=== PATIENT | female | born 1985 | race African-American/Black ===

== ENCOUNTER 2017-12-31 10:23 | Inpatient (IN) | payer OTHER ==
[~2017-12-31] VITALS: Ht 170.2 cm; Wt 113.4 kg
[2017-12-31] VITALS (10 sets, daily range): BP systolic 116–139; BP diastolic 68–88
[~2017-12-31 10:23] MED LIST: ceFAZolin sod 2 GM in NS 110 ML IVPB ONE
[2017-12-31] MEDS ORDERED: NORCO 10-325 T1 EACH ORAL (11:26)
[2017-12-31] MEDS ORDERED: IBUPROFEN600 MG ORAL (11:27)
[2017-12-31] MEDS ORDERED: Ketorolac 30mg Inj ONE (11:30)
[2017-12-31] MEDS ORDERED: LR 1000ml ONE (11:30)
[2017-12-31] MEDS ORDERED: Sterile Water Irrig 1000ml IRRIG ONE (11:30)
[2017-12-31] MEDS ORDERED: Propofol 1,000mg/ 100ml btl IV ONE (11:30)
[2017-12-31] MEDS ORDERED: fentaNYL 100 mcg/2 mL IV ONE (11:30)
[2017-12-31] MEDS ORDERED: Glycopyrrolate 0.2mg/ml 1ml Vial ONE (11:30)
[2017-12-31] MEDS ORDERED: Metoclopramide 10mg/2ml Inj ONE (11:30)
[2017-12-31] MEDS ORDERED: Midazolam 2mg/2ml Inj ONE (11:30)
[2017-12-31] MEDS ORDERED: Propofol 200mg/20ml IV ONE (11:30)
[2017-12-31] MEDS ORDERED: Morphine Sulfate 10mg/ml Inj ONE (11:30)
[2017-12-31] MEDS ORDERED: Dexamethasone 4mg/ml vial ONE (11:30)
[2017-12-31] MEDS ORDERED: NS Irrig 1000ml ONE (11:30)
[2017-12-31] MEDS ORDERED: CYCLOBENZAPRINE10 MG ORAL (11:40)
[2017-12-31] MEDS ORDERED: Thrombin 5000 units TOPIC ONE (11:48)
[2017-12-31] MEDS ORDERED: Bupivacaine 0.5% Inj 30 ml vial INJ ONE (11:48)
[2017-12-31] MEDS ORDERED: Vancomycin 1gm inj IVPB ONE ×2 (11:49→13:38)
[2017-12-31] MEDS ORDERED: EPINEPHrine 1mg/1ml Amp ONE (11:49)
--- NOTE | 2017-12-31 11:57 | Pre-Procedure Note/Attestation ---
Pre-Procedure Note/Attestation Complete Prior to Procedure Procedure Narrative: l5s1 laminotomies, microdecompression and microdiscectomy Indications for Procedure Pre-Operative Diagnosis: hnp with lumbar radiculopathy Attestation I attest that I discussed the nature of the procedure; its benefits; risks and complications; and alternatives (and the risks and benefits of such alternatives ), prior to the procedure, with the patient (or the patient's legal digital sales representative). I attest that, if there was a reasonable possibility of needing a blood transfusion, the patient (or the patient's legal digital sales representative) was given the [facility] Health Services standardized written summary, pursuant to the Jake Ajay Blood Safety Act ([place] Health and Safety Code # 1645, as amended). I attest that I re-evaluated the patient just prior to the surgery and that there has been no change in the patient's H&P, except as documented below: LAMINE PRATT Dec 31, 2017 11:57
[2017-12-31] MEDS ORDERED: Bacitracin 50000 Units Vial IRRIG ONE (12:46)
--- NOTE | 2017-12-31 12:58 | Anethesia Preoperative Eval ---
Anesthesia Pre-op PMH/ROS General Date of Evaluation: Dec 31, 2017 Time of Evaluation: 11:45 Anesthesiologist: RAN ASA Score: ASA 2 Mallampati Score Class I : Soft palate, uvula, fauces, pillars visible Class II: Soft palate, uvula, fauces visible Class III: Soft palate, base of uvula visible Class IV: Only hard plate visible Mallampati Classification: Class II Surgeon: TERENCE Diagnosis: LUMBAR RADICULOPATHY Surgical Procedure: L5-S1 MICRODISKECTOMY Anesthesia History: none Family History: no anesthesia problems Allergies: Coded Allergies: No Known Allergies (Unverified , 12/31/17) Anesthesia Pre-op Phys. Exam Physician Exam Last Vital Signs Date Time Temp Pulse Resp B/P (MAP) Pulse Ox O2 Delivery O2 Flow Rate FiO2 12/31/17 11:02 98.0 80 18 135/88 100 Room Air 98.0 Constitutional: NAD Neurologic: CN 2-12 intact Cardiovascular: RRR Respiratory: CTA Gastrointestinal: S/NT/ND Airway Exam Mallampati Score: Class II MO: full ROM: full Teeth: intact Anesthesia Pre-op A/P Labs Urine Test Test 12/31/17 10:30 Urine HCG, Qualitative Negative Risk Assessment & Plan Plan: GA Status Change Before Surgery: No Pre-Antibiotics Drug: ANCEF Given Within 1 Hr of Incision: Yes Time Given: 12:00 Erick Aguirre M.D. Dec 31, 2017 12:58
[2017-12-31] MEDS ORDERED: DiphenhydrAMINE 50mg/ml Inj IVP PRN (13:00)
[2017-12-31] MEDS ORDERED: Morphine Sulfate 2mg/ml Inj IVP PRN (13:00)
[2017-12-31] MEDS ORDERED: Hydromorphone 0.5mg/0.5ml inj IVP PRN ×2 (13:00→15:15)
[2017-12-31] MEDS ORDERED: Midazolam 2mg/2ml Inj IVP PRN (13:00)
[2017-12-31] MEDS ORDERED: fentaNYL 100 mcg/2 mL IV PRN (13:00)
--- NOTE | 2017-12-31 13:02 | Immediate Post-Op Evaluation ---
Immediate Post-Op Evalulation Immediate Post-Op Evalulation Procedure: L5-S1 MICRODISKECTOMY Date of Evaluation: Dec 31, 2017 Time of Evaluation: 14:00 IV Fluids: 1000 Blood Products: 0 Estimated Blood Loss: 50 Urinary Output: 400 Blood Pressure Systolic: 145 Blood Pressure Diastolic: 65 Pulse Rate: 85 Respiratory Rate: 18 O2 Sat by Pulse Oximetry: 99 Temperature (Fahrenheit): 98 Pain Score (1-10): 0 Nausea: No Vomiting: No Complications NONE Patient Status: awake, reacts, patent, extubated, none Hydration Status: adequate Drug: ANCEF Given Within 1 Hr of Incision: Yes Time Given: 12:00 Erick Aguirre M.D. Dec 31, 2017 13:02
--- NOTE | 2017-12-31 13:03 | 48 Hour Post Anesthesia Eval ---
Post Anesthesia Evaluation Procedure: L5-S1 MICRODISKECTOMY Date of Evaluation: Jan 02, 2018 Time of Evaluation: 09:00 Blood Pressure Systolic: 143 0: 95 Pulse Rate: 85 Respiratory Rate: 18 Temperature (Fahrenheit): 98 O2 Sat by Pulse Oximetry: 99 Airway: patent Nausea: No Vomiting: No Pain Intensity: 0 Hydration Status: adequate Mental Status/LOC: patient returned to baseline Post-Anesthesia Complications: NONE Follow-up care needed: ready to discharge Erick Aguirre M.D. Dec 31, 2017 13:03
[2017-12-31] MEDS ORDERED: Acetaminophen (Non formulary) 100 ML IV ONE (14:10)
--- NOTE | 2017-12-31 15:13 | Brief Operative Note ---
Immediate Post Operative Note Operative Note Pre-op Diagnosis: hnp with lumbar radiculopathy Procedure: l l5s1 microdiscectomy Post-op Diagnosis: same as pre-op Findings: consistent w/pre-op dx studies Surgeon: yun Associate Art Director: kali Anesthesiologist: piter Anesthesia: general Specimen: yes - l5s1 disc Complications: none Condition: stable Fluids: 1l Estimated Blood Loss: minimal - 25cc Drains: none Implant(s) used?: No LAMINE PRATT Dec 31, 2017 15:13
[2017-12-31] MEDS ORDERED: Norco 5mg/325mg tab ORAL PRN (15:15)
[2017-12-31] MEDS ORDERED: HYDROcodone/Acetamin 7.5/325 tab ORAL PRN (15:15)
[2017-12-31] MEDS ORDERED: Hydromorphone 0.5mg/0.5ml inj SUBQ PRN (15:15)
[2017-12-31] MEDS ORDERED: Naloxone 0.4mg/ml Inj IVP PRN (15:15)
--- NOTE | 2017-12-31 16:31 | Diagnostic Imaging Report ---
Indication: Pain, intraoperative Technique: Intraoperative images Comparison: none Findings: Intraoperative images demonstrate localizer tool projecting posterior to what is presumably S1 Impression: Intraoperative imaging, as described
[2017-12-31] MEDS ORDERED: LR 1000ml 1,000 ML IVLG SCH (17:30)
[2017-12-31] MEDS: Docusate 100mg cap ORAL SCH (17:33)
[2017-12-31] MEDS ORDERED: ceFAZolin 1gm/50ml Premix 50 ML IV SCH (22:00)
[2017-12-31] MEDS: ceFAZolin sod 1 GM in NS 55 ML IVPB SCH (22:15)
[2018-01-01] VITALS: BP 117/69
[2018-01-01] MEDS: HYDROcodone/Acetamin 7.5/325 tab ORAL PRN ×3 (00:23→17:33)
--- NOTE | 2018-01-01 00:30 | Operative Note - Dictated ---
DATE OF OPERATION: 12/31/2017 PREOPERATIVE DIAGNOSIS: L5-S1 disk extrusion with Modic changes and lower extremity radiculopathy. POSTOPERATIVE DIAGNOSIS: L5-S1 disk extrusion with Modic changes and lower extremity radiculopathy. PROCEDURE PERFORMED: 1. Left L5-S1 medial facetectomy, laminotomy, foraminotomy, and microdiskectomy. 2. Intraoperative use of fluoroscopy. 3. Intraoperative use of microscope. SURGEON: Joey Villarreal M.D. METAL POLISHER: Steven Winkler M.D. ANESTHESIA: General endotracheal anesthesia. ANESTHESIOLOGIST: Erick Aguirre M.D. INTRAOPERATIVE FINDINGS: A large disk extrusion at L5-S1 with severe compression of the thecal sac and the left S1 traversing nerve root and exiting L5 nerve root with severe spinal stenosis. ESTIMATED BLOOD LOSS: A 25 mL. FLUIDS: A 1 liter of crystalloid. INDICATIONS: This is a pleasant female who had failed nonoperative treatment with lower extremity radiculopathy and nonoperative treatment, options for above treatment was given. Risks, alternatives, and benefits were discussed with the patient at length. Risks include but are not limited to anesthesia complications including , medical complications including liver, kidney, and cardiopulmonary deficits, , bleeding, infection, dural tear, CSF leak, nerve injury, pars fracture, instability, reherniation, and continued symptoms. The patient understood and wished to proceed. Written and verbal consent was given. DESCRIPTION OF OPERATION: The patient was brought to the operating room supine on a stretcher. Subsequently, appropriate IV lines were placed and 3 g of Ancef was administered. Surgical time-out was called. The consent form, the patient, and staff were identified and confirmed. Anesthesia was induced. The patient was successfully intubated. Sequential compression devices were placed. The patient was turned over on the José Luis frame table. All bony prominences were well padded and the abdomen was assured to lay freely. The L5-S1 interspace was located preoperatively via fluoroscopy and an indelible marker was used to adriana the midline. The patient was prepped and draped in the usual sterile fashion with alcohol, chlorhexidine scrub, ChloraPrep, and Ioban draping. At this point, the intraoperatively sterilely draped microscope was brought into the field and a midline incision was carried out over L5-S1. The patient was severely morbidly obese and there was significant amount of suprafascial fatty tissues which made retraction difficult. Therefore, a left-sided as well as a partial right-sided approach to the lamina at L5-S1 was undertaken for retractor placement. Once the lamina on the left side was subperiosteally dissected, a radiopaque marker was placed at the pedicle level and lateral fluoroscopy revealed the L5-S1 level to be positively identified. At this point, retractors were set into place at L5-S1, and excellent retraction and visualization at left L5-S1 interspace was allowed. At this point, attention was diverted to doing the laminotomy with high-speed drill, straight and curved curettes, #2 through #5 Kerrison punches were used to do an interlumbar laminotomy, medial facetectomy, and foraminotomy. SSEP neurophysiological monitoring was done throughout the case and EMGs remained stable throughout the case. SSEPs remained stable. At this point, the lateral approach to the disk at L5-S1 on the left side was done and a box incision was made in the disk with an #11 scalpel. At this point, with the use of Allison rongeur, straight and forward-angled pituitary, Roldan, Nargis probe, nerve hook, a microdiskectomy was done. Initially, there was not much retraction of the neural elements given the very large size of the disk herniation, but disk was debulked, gentle retraction with a nerve root retractor was done, and all herniated and extruded disk material were removed. Further investigation of the disk revealed no further fragments. Disk space irrigation was done and a complete decompression of the central canal, lateral recess, and foraminal space was undertaken. Valsalva 40 mmHg was done and there was no CSF leak. At this point, attention was diverted to closure. The wound was copiously irrigated with Triple Antibiotic solution. All sponge, needle, and instrument counts were correct. The dorsal lumbar fascia was closed with #1 Vicryl sutures in a watertight interrupted fashion. The subdermal subcuticular layers were closed with 2-0 Vicryl sutures. Before that, 1 g of vancomycin powder was placed suprafascially and subfascially. The skin was now closed with Dermabond. Sterile dressing and tape was placed. All sponge, needle, and instrument counts were correct. There were no complications during the case. EBL was 25 mL. Fluids were 1 L. The patient was turned supine, was extubated in stable condition, was taken to the recovery room in stable condition, and found to be neurovascularly intact. Joey Villarreal M.D. DR: Ramya JOB#: [id number] CC:
[2018-01-01 04:00] VITALS: BP 109/71
[2018-01-01] MEDS: ceFAZolin sod 1 GM in NS 55 ML IVPB SCH ×3 (05:15→21:46)
[2018-01-01 08:40] VITALS: BP 121/65
[2018-01-01] MEDS: Docusate 100mg cap ORAL SCH ×2 (09:35→17:31)
[2018-01-01 12:00] VITALS: BP 119/74
[2018-01-01 16:00] VITALS: BP 119/79
--- NOTE | 2018-01-01 17:29 | General Progress Note ---
Progress Note Progress Note doing well post op no leg pain low back pain avss a and o times 3 dressing cdi 5/5 in the le calves soft and nt doing well oob pt pain management dc tomorrow follow up in 7 days. LAMINE PRATT Jan 01, 2018 17:28
[2018-01-01 20:00] VITALS: BP 128/80
[2018-01-02] VITALS: BP 116/71
[2018-01-02] MEDS: HYDROcodone/Acetamin 7.5/325 tab ORAL PRN ×3 (01:41→11:47)
[2018-01-02 04:00] VITALS: BP 122/80
[2018-01-02] MEDS: ceFAZolin sod 1 GM in NS 55 ML IVPB SCH (06:22)
[2018-01-02] MEDS ORDERED: NORCO 5-325 TA1 EAC1 ORAL (07:30)
[2018-01-02] MEDS ORDERED: NAPROSYN500 M1 ORAL (07:31)
[2018-01-02 08:00] VITALS: BP 107/68
[2018-01-02] MEDS: Docusate 100mg cap ORAL SCH (08:39)
[2018-01-02 12:00] VITALS: BP 118/66
--- NOTE | 2018-01-06 10:04 | Discharge Summary ---
Discharge Summary Hospital Course Date of Admission Dec 31, 2017 at 10:23 Date of Discharge Jan 02, 2018 at 12:50 Admitting Diagnosis back pain and lower extremity radiculopathy Reason for Hospitalization: elective surgery HPI Christiane Yin is a 32 year old female who was admitted on Dec 31, 2017 at 10: 23 for back pain and lower extremities radiculopathy patient was admitted fr elective surgery Procedures PROCEDURE PERFORMED: 12/31/[address]arreal 1. Left L5-S1 medial facetectomy, laminotomy, foraminotomy, and microdiskectomy. 2. Intraoperative use of fluoroscopy. 3. Intraoperative use of microscope. Hospital Course s/p surgery course of recovery uneventful LE pain resoled neurovascular intact pain management, controlled ambulated with PT initially ;n able to ambulate independently, stable dressing C/D/I voided freely tolerated diet stable for dc fup with surgeon as outpt in 7 days FINAL DIAGNOSIS Herniated nucleus pulposa with lumbar radiculopathy s/p L5S1 microdiscectomy Discharge Medications Continued Medications: Hydrocodone Bit/Acetaminophen 5-325* (Magnolia 5-325 Tablet*) 1 Each Tablet 1 TAB ORAL Q6HR PRN for For Pain, #40 TAB Naproxen* (Naprosyn*) 500 Mg Tablet 500 MG ORAL TWICE A DAY for For Pain, #40 TAB Discharge Condition Upon Discharge: stable Discharge Disposition Patient was discharged to Home (01) Discharge Diagnoses: Discharge Instructions Discharge Instructions Special Instructions I have been assigned to complete a D/C Summary on this account. I was not involved in the patient management Airam Fallon NP (Vanchtein) Jan 06, 2018 10:04
== END 2018-01-02 12:50 | disposition home or self-care (01) | DRG 520 ==
LOC: SDSOVERFLO 10:23 → 3E 17:15
PROC: 0ST40ZZ Resection of Lumbosacral Disc, Open Approach (ICD-10-PCS; principal; 2017-12-31 12:00)
DX: M51.17 Intervertebral disc disorders with radiculopathy, lumbosacral region (principal); E66.9 Obesity, unspecified; Z68.35 Body mass index [BMI] 35.0-35.9, adult; M48.07 Spinal stenosis, lumbosacral region
CPT/HCPCS: 36415; 72020; 76000; 81025; 86850; 86900; 86901; 87081; 94003; 94150; J2250; J2405; J2765

== ENCOUNTER 2018-06-14 09:26 | Inpatient (IN) | payer OTHER ==
[2018-06-14] VITALS (12 sets, daily range): BP systolic 122–181; BP diastolic 73–116
[~2018-06-14] VITALS: Ht 170.2 cm; Wt 118.8 kg
[~2018-06-14 09:26] MED LIST changes: +CYCLOBENZAPRINE10 MG ORAL; +IBUPROFEN600 MG ORAL; +NAPROSYN500 M1 ORAL; +NORCO 10-325 T1 EACH ORAL; +NORCO 5-325 TA1 EAC1 ORAL; +ceFAZolin sod 2 GM in D5W 110 ML IVPB ONE; -ceFAZolin sod 2 GM in NS 110 ML IVPB ONE
[2018-06-14] MEDS ORDERED: Zemuron 50mg/5ml Inj IV ONE (10:54)
[2018-06-14] MEDS ORDERED: Vancomycin 1gm inj IVPB ONE (10:57)
[2018-06-14] MEDS ORDERED: EPINEPHrine 1mg/1ml Amp ONE (10:57)
[2018-06-14] MEDS ORDERED: Thrombin 5000 units TOPIC ONE (10:57)
[2018-06-14] MEDS ORDERED: Lacri-Lube Opth Oint 3.5gm ONE (10:57)
[2018-06-14] MEDS ORDERED: Gelfoam Size TOPIC ONE (10:58)
[2018-06-14] MEDS ORDERED: Heparin 1000 units/ml 1ml Vial ONE (10:58)
[2018-06-14] MEDS: D5 1/2NS 1,000 ML IV SCH ×3 (10:58→19:50)
[2018-06-14] MEDS ORDERED: Bacitracin 50000 Units Vial ONE (10:58)
[2018-06-14] MEDS ORDERED: Bupivacaine 0.5% Inj 30 ml vial INJ ONE (10:58)
--- NOTE | 2018-06-14 10:58 | Pre-Procedure Note/Attestation ---
Pre-Procedure Note/Attestation Complete Prior to Procedure Procedure Narrative: ACDF C56 WITH BONE MARROW ASPIRATION Indications for Procedure Pre-Operative Diagnosis: cervical radiculopathy Attestation I attest that I discussed the nature of the procedure; its benefits; risks and complications; and alternatives (and the risks and benefits of such alternatives ), prior to the procedure, with the patient (or the patient's legal appeals representative). I attest that, if there was a reasonable possibility of needing a blood transfusion, the patient (or the patient's legal appeals representative) was given the [facility] Services standardized written summary, pursuant to the Jake Ajay Blood Safety Act ([place] Health and Safety Code # 1645, as amended). I attest that I re-evaluated the patient just prior to the surgery and that there has been no change in the patient's H&P, except as documented below: Joey Villarreal MD Jun 14, 2018 10:58
[2018-06-14] MEDS ORDERED: Sterile Water Irrig 1000ml IRRIG ONE (11:00)
[2018-06-14] MEDS ORDERED: LR 1000ml ONE (11:00)
[2018-06-14] MEDS ORDERED: NS Irrig 1000ml ONE (11:00)
[2018-06-14] MEDS ORDERED: Propofol 1,000mg/ 100ml btl IV ONE (11:00)
[2018-06-14] MEDS ORDERED: Propofol 200mg/20ml IV ONE (11:06)
[2018-06-14] MEDS ORDERED: Lidocaine 1% MPF 10mg/ml 5ml ONE (11:06)
[2018-06-14] MEDS ORDERED: Dexamethasone 4mg/ml vial ONE (11:06)
[2018-06-14] MEDS ORDERED: fentaNYL 100 mcg/2 mL IV ONE ×2 (11:06→12:24)
[2018-06-14] MEDS ORDERED: Ketamine 500mg Inj ONE (11:09)
[2018-06-14] MEDS ORDERED: Sugammadex Sodium 200mg/2ml vial IV ONE (11:24)
[2018-06-14] MEDS ORDERED: Labetalol 5mg/ml 20ml vial IV ONE (12:41)
[2018-06-14] MEDS ORDERED: LR 1000ml 1,000 ML IVLG SCH (13:00)
[2018-06-14] MEDS ORDERED: Hydromorphone 0.5mg/0.5ml inj IVP PRN (13:00)
[2018-06-14] MEDS ORDERED: Labetalol 5mg/ml 20ml vial IV PRN (13:00)
[2018-06-14] MEDS ORDERED: fentaNYL 100 mcg/2 mL IV PRN (13:00)
[2018-06-14] MEDS ORDERED: Midazolam 2mg/2ml Inj IVP PRN (13:00)
[2018-06-14] MEDS ORDERED: DiphenhydrAMINE 50mg/ml Inj IVP PRN (13:00)
--- NOTE | 2018-06-14 13:00 | Anethesia Preoperative Eval ---
Anesthesia Pre-op PMH/ROS General Date of Evaluation: Jun 14, 2018 Time of Evaluation: 11:10 Anesthesiologist: ASA Score: ASA 3 Mallampati Score Class I : Soft palate, uvula, fauces, pillars visible Class II: Soft palate, uvula, fauces visible Class III: Soft palate, base of uvula visible Class IV: Only hard plate visible Mallampati Classification: Class II Surgeon: yun Diagnosis: cervicle radiculopathy Anesthesia History: none Family History: no anesthesia problems Allergies: Coded Allergies: No Known Allergies (Unverified , 12/31/17) Past Medical History Cardiovascular: Reports: other - probable undiagnosed HTN; Denies: HTN, CAD, AR, valve dz, arrhythmia Pulmonary: Denies: asthma, COPD, JAMES, other Gastrointestinal/Genitourinary: Denies: GERD, CRI, ESRD, other Neurologic/Psychiatric: Denies: dementia, CVA, depression/anxiety, TIA, other Endocrine: Denies: DM, hypothyroidism, steroids, other HEENT: Denies: cataract (L), cataract (R), glaucoma, [place] other Hematology/Immune: Denies: anemia, DVT, bleeding disorder, other Musculoskeletal/Integumentary: Reports: other - cervical radiculopathy; Denies: OA, RA, DJD, DDD, edema Other: obesity PSxH Narrative: back surgery, cholecystectomy Anesthesia Pre-op Phys. Exam Physician Exam Last Vital Signs Date Time Temp Pulse Resp B/P (MAP) Pulse Ox O2 Delivery O2 Flow Rate FiO2 06/14/18 10:36 97.1 59 20 134/92 (106) 100 97.1 06/14/18 10:17 Room Air Constitutional: NAD Cardiovascular: RRR Respiratory: CTA Gastrointestinal: S/NT/ND Airway Exam Mallampati Score: Class II MO: full ROM: full Teeth: intact Dentures: no upper, no lower Anesthesia Pre-op A/P Labs Urine Test Test 06/14/18 09:31 Urine HCG, Qualitative Negative (NEGATIVE) Risk Assessment & Plan Assessment: asa 3 Plan: ETGA Status Change Before Surgery: No Pre-Antibiotics Drug: ancef 3 grams Given Within 1 Hr of Incision: Yes Time Given: 11:40 Precious Roth M.D. Jun 14, 2018 13:00
--- NOTE | 2018-06-14 13:12 | Immediate Post-Op Evaluation ---
Immediate Post-Op Evalulation Immediate Post-Op Evalulation Procedure: ACDF C5-6 w/bone marrow asp. iliac crest and possible allograft Date of Evaluation: Jun 14, 2018 Time of Evaluation: 14:35 IV Fluids: lr 600ml Blood Products: 0 Estimated Blood Loss: 20ml Urinary Output: 600ml Blood Pressure Systolic: 173 Blood Pressure Diastolic: 98 Pulse Rate: 61 Respiratory Rate: 12 O2 Sat by Pulse Oximetry: 100 Temperature (Fahrenheit): 97 Pain Score (1-10): 0 Nausea: No Vomiting: No Complications none Patient Status: reacts, patent, none Hydration Status: adequate Drug: ancef 3 grams Given Within 1 Hr of Incision: Yes Time Given: 11:40 Precious Roth M.D. Jun 14, 2018 13:12
--- NOTE | 2018-06-14 14:13 | Brief Operative Note ---
Immediate Post Operative Note Operative Note Pre-op Diagnosis: cervical radiculopathy Procedure: acdf c56 with BMAC from right iliac crest Post-op Diagnosis: same as pre-op Findings: consistent w/pre-op dx studies Surgeon: TERENCE Sales Systems Engineer: MARCO A Anesthesiologist: Anesthesia: general Specimen: yes Complications: none Condition: stable Fluids: 600CC Estimated Blood Loss: minimal - 200CC Implant(s) used?: Yes Joey Villarreal MD Jun 14, 2018 14:13
--- NOTE | 2018-06-14 15:23 | Diagnostic Imaging Report ---
Indication: Neck pain Technique: Intraoperative images Comparison: none Findings: Intraoperative images demonstrate localizer tool projecting anterior to what appears to be the C5-6 disc. Subsequent images demonstrate anterior fusion at C5-6 Impression: Intraoperative imaging, as described
[2018-06-14] MEDS ORDERED: HYDROcodone/Acetamin 7.5/325 tab ORAL PRN (16:06)
[2018-06-14] MEDS ORDERED: Norco 5mg/325mg tab ORAL PRN (16:06)
[2018-06-14] MEDS ORDERED: Morphine Sulfate 4mg/ml Inj (IV USE ONLY) IV PRN (16:07)
[2018-06-14] MEDS ORDERED: Naloxone 0.4mg/ml Inj IVP PRN (16:07)
[2018-06-14] MEDS ORDERED: Morphine Sulfate 2mg/ml Inj(IV/IM USE ONLY) IV PRN (16:07)
[2018-06-14] MEDS: Docusate 100mg cap ORAL SCH (17:48)
[2018-06-14] MEDS: Morphine Sulfate 4mg/ml Inj (IV USE ONLY) IV PRN (19:49)
[2018-06-14] MEDS: ceFAZolin 1gm/50ml Premix 50 ML IV SCH (19:50)
[2018-06-14] MEDS: HYDROcodone/Acetamin 7.5/325 tab ORAL PRN (23:08)
[2018-06-15 00:42] VITALS: BP 147/98
[2018-06-15] MEDS: Morphine Sulfate 4mg/ml Inj (IV USE ONLY) IV PRN ×4 (01:16→23:51)
[2018-06-15] MEDS: HYDROcodone/Acetamin 7.5/325 tab ORAL PRN ×4 (03:10→16:17)
[2018-06-15] MEDS: D5 1/2NS 1,000 ML IV SCH (03:35)
[2018-06-15] MEDS: ceFAZolin 1gm/50ml Premix 50 ML IV SCH ×2 (03:36→11:19)
[2018-06-15 04:00] VITALS: BP 109/69
[2018-06-15 08:00] VITALS: BP 131/84
[2018-06-15] MEDS: Docusate 100mg cap ORAL SCH ×2 (08:21→17:54)
--- NOTE | 2018-06-15 08:42 | 48 Hour Post Anesthesia Eval ---
Post Anesthesia Evaluation Procedure: ACDF C5-6 w/bone marrow asp. iliac crest and possible allograft Date of Evaluation: Jun 15, 2018 Time of Evaluation: 08:00 Blood Pressure Systolic: 131 0: 84 Pulse Rate: 60 Respiratory Rate: 19 Temperature (Fahrenheit): 98.4 O2 Sat by Pulse Oximetry: 100 Airway: patent Nausea: No Vomiting: No Pain Intensity: 5 Hydration Status: adequate Mental Status/LOC: patient returned to baseline Post-Anesthesia Complications: none Follow-up care needed: N/A Precious Roth M.D. Jun 15, 2018 08:42
[2018-06-15] MEDS ORDERED: NORCO 5-325 TA1 EACH ORAL (10:46)
[2018-06-15] MEDS ORDERED: SOMA350 MG PO (10:47)
--- NOTE | 2018-06-15 10:57 | Operative Note - Dictated ---
DATE OF OPERATION: 06/14/2018 PREOPERATIVE DIAGNOSIS: C5-C6 disk bulge with stenosis and verifiable right C6 radiculopathy. POSTOPERATIVE DIAGNOSIS: C5-C6 disk herniation with stenosis and upper extremity radiculopathy. PROCEDURE PERFORMED: 1. Anterior cervical interbody arthrodesis at C5-C6. 2. Anterior cervical instrumentation at C5-C6. 3. Implantation of PEEK device at C5-C6. 4. Implantation of [place] allograft, local autograft and bone marrow aspirate concentrate at C5-C6. 5. Intraoperative use of fluoroscopy. 6. Apposition of bone marrow aspiration from right iliac crest. SURGEON: Joey Villarreal M.D. DIRECTOR TELECOMMUNICATIONS: Gigi Brown. ANESTHESIA: General endotracheal anesthesia. ANESTHESIOLOGIST: Dr. Roth. ESTIMATED BLOOD LOSS: 20 mL. IV ANTIBIOTICS: 2 g of Ancef. COMPLICATIONS: None. BACKGROUND INDICATIONS: The patient is a pleasant female, who failed nonoperative treatment and options for above treatment were given. Risks, alternatives, and benefits were discussed with the patient at length and the patient wished to proceed. Written and verbal consent was given. OPERATIVE FINDINGS: Herniated nucleus pulposus at C5-C6 with central stenosis and right paracentral and intraforaminal extension of disk herniation causing stenosis and impingement at the traversing and exiting right C6 nerve root. DESCRIPTION OF OPERATION: The patient was brought to the operating room supine on the stretcher. Appropriate IV lines were placed by the anesthesiologist. A 2 g of Ancef was administered. The patient was induced and intubated without complication. The patient was gently placed onto the operating room table. The neck was placed in neutral alignment. The arms were tucked by the side. All bony prominences were well padded as well as the four extremities. SSEP neurophysiological leads were placed and baseline recordings were done by the Neurophysiology restorative care technician and all recordings remained stable throughout the case. Preoperative fluoroscopy revealed the planned incision to be over the C5-C6 interspace. Fluoroscopy revealed the neck to be in adequate normal cervical lordotic position. The neck was prepped and draped in the usual sterile fashion with alcohol, chlorhexidine scrub, ChloraPrep, and Ioban draping. At this point, the neck was prepped and draped in the usual sterile fashion as well as the right iliac crest, which was prepped and draped in the usual sterile fashion with Ioban draping and sterile draping. Initially, attention was diverted to the right iliac crest area. Jamshidi needle was taken and with a puncture incision over the right iliac crest approximately 3 fingerbreadths posterior to the anterior superior iliac spine, the Jamshidi needle was introduced into the center of the iliac crest and aspiration of 3 vials of 10 mL of bone marrow aspiration in different locations from the iliac crest was taped in for a total of 30 mL, this was spun down for concentration of stem cells. Once this was done, now attention was diverted to doing the neck incision and an incision was carried out with a scalpel of the anterior right side of the neck in the crease of the neck. Hemostasis was achieved with bipolar cautery. The platysma was incised in line with the skin incision. Blunt dissection was carried out in the interval between the strap muscles and the sternocleidomastoid. Superficial cervical fascia was dissected caudally as well as cephalad. Carotid pulse was palpated and was found to be well lateral to the field of dissection. At this point with Kittners and finger dissection, the prevertebral space was found and the longus colli was found on each side of the spine, which was subperiosteally dissected. A radiopaque marker in the form of a spinal needle was placed at the disk level and the C5-C6 disk level was positively identified. The case was done from beginning to end with an intraoperatively sterilely draped microscope. At this point, attention was diverted to doing the diskectomy at C5-C6. A #15 blade was used to cut into the anterior annulus and with the use of pituitary rongeurs, straight and curved curette, and #2 and #3 Kerrison punches, a radical diskectomy at C5-C6 was done. Endplate cartilage was removed. Endplate bone was preserved and at this point, a high-speed drill was used to drill the posterior aspect of the vertebral bodies. The local autograft was saved for later implantation into the interbody space. The drilling was done to the level of the posterior longitudinal ligament and with #1 and #2 Microsect curette, the PLL was removed and #1 and #2 Kerrison punches was used to do a complete decompression of the spinal canal, the lateral recess, as well as the neural foramina. There was a large disk herniation, right paramedian and intraforaminal causing significant compression of the exiting right C6 nerve root. Once a complete decompression of the neural foramina was done, final check with Microsect curettes was done, there was complete decompression. All disc material was removed. PLL was removed and a foraminotomy on the left side was also accomplished. At this point, from the spinal element system, different trials were used and at this point, a trial measuring 7 mm in height lordotic, 16 x 13 mm was found to fit into the interbody space well. The corresponding PEEK interbody device was chosen, was packed with local autograft Zelalem putty and bone marrow aspirate concentrate and was tamped into place at C5-C6 with excellent recreation of disk height and lordosis. A [place] cervical plate was chosen, was bent into a lordotic fashion and fixed to the anterior surface of the C5 and C6 vertebral bodies with self-drilling 14 mm screws at C5 and self-drilling 12 mm screws at C6, each screw sat below the locking mechanism of the plate well and the plate sat snugly against the anterior surface of the vertebral bodies. The wound was copiously irrigated multiple times throughout the case including the disk space. There was no bleeding. Hemostasis was achieved with Gelfoam thrombin, bipolar cautery, as well as FloSeal. Fluoroscopy was used throughout the case including biplanar fluoroscopy to plan the incision, to plan the implantation, and check the implantation of the instrumentation and final AP and lateral fluoroscopy revealed the instrumentation to be in excellent position. Hemostasis was achieved. Half a gram of vancomycin powder was placed. The platysma was closed with 3-0 Vicryl sutures in a watertight interrupted fashion. The subcuticular layer was closed with 3-0 Monocryl sutures in a watertight interrupted fashion. The skin was closed with Dermabond. Sterile dressing tape and C-collar was placed. All sponge, needle, and instrument counts were correct. There were no complications during the case. Final EBL was 20 mL only and at this point, the patient was extubated, awoken, taken to the recovery room in stable condition, and was found to be neurovascularly intact. She was admitted to the hospital for monitoring. Joey Villarreal M.D. DR: KWAKU JOB#: [id number] CC: EVI
[2018-06-15 12:00] VITALS: BP 134/81
--- NOTE | 2018-06-15 15:47 | History and Physical ---
History of Present Illness General Date patient seen: Jun 15, 2018 Present Illness HPI 33 year old female with hx of cervical radiculopathy admitted for acdf c56 with BMAC from right iliac crest. She is admitted to floor for post op care. Allergies: Coded Allergies: No Known Allergies (Unverified , 12/31/17) Medication History Scheduled Carisoprodol* (Soma*), 350 MG PO TID, (Reported) Scheduled PRN Hydrocodone Bit/Acetaminophen 5-325* ([place] 5-325*), 1 TAB ORAL Q6H PRN for For Pain, (Reported) Discontinued Medications Cyclobenzaprine Hcl* (Flexeril*), 10 MG ORAL THREE TIMES A DAY, (Reported) Discontinued Reason: Pt stopped taking med Hydrocodone Bit/Acetaminophen 10-325* ([place] 10-325*), 1 TAB ORAL Q4H PRN for For Pain, (Reported) Discontinued Reason: Pt stopped taking med Hydrocodone Bit/Acetaminophen 5-325* ([place] 5-325 Tablet*), 1 TAB ORAL Q6HR PRN for For Pain, (Reported) Discontinued Reason: Pt stopped taking med Ibuprofen* (Motrin*), 600 MG ORAL Q6H PRN for For Pain, (Reported) Discontinued Reason: Pt stopped taking med Naproxen* (Naprosyn*), 500 MG ORAL TWICE A DAY, (Reported) Discontinued Reason: Pt stopped taking med Patient History Healthcare decision maker ROGELIO-MOTHER Resuscitation status Full Code Advanced Directive on File Past Medical/Surgical History Past Medical/Surgical History: (1) Cervical radiculopathy (2) acdf c56 Review of Systems All Other Systems: negative except mentioned in HPI Physical Exam General Appearance: WD/WN, no apparent distress Lines, tubes and drains: peripheral HEENT: normocephalic, atraumatic Neck: non-tender, normal alignment Respiratory/Chest: chest wall non-tender, lungs clear Breasts: no masses Cardiovascular/Chest: normal peripheral pulses, normal rate Abdomen: normal bowel sounds, non tender Genitourinary/Rectal: normal genital exam, normal rectal exam Skin Exam: normal pigmentation Last 24 Hour Vital Signs Date Time Temp Pulse Resp B/P (MAP) Pulse Ox O2 Delivery O2 Flow Rate FiO2 06/15/18 14:15 98.4 06/15/18 13:16 98.4 06/15/18 12:00 98.1 59 18 134/81 (98) 100 98.1 06/15/18 10:00 Room Air 06/15/18 08:42 209.1 60 19 100 06/15/18 08:22 98.4 06/15/18 08:12 Room Air 06/15/18 08:00 97.6 60 19 131/84 (100) 100 97.6 06/15/18 04:00 98.4 55 20 109/69 (82) 100 98.4 06/15/18 00:42 97.4 58 19 147/98 (114) 100 97.4 06/14/18 21:00 Nasal Cannula 3.0 06/14/18 18:30 97.9 104 20 140/86 (104) 100 97.9 06/14/18 17:30 97.8 105 20 144/86 (105) 98 97.8 06/14/18 16:10 Nasal Cannula 3.0 06/14/18 16:10 97.8 64 20 163/89 (113) 100 97.8 06/14/18 16:05 97.9 06/14/18 15:45 97.9 62 13 122/73 100 Nasal Cannula 3 97.9 Intake and Output 06/14/18 06/15/18 19:00 07:00 Intake Total 950 ml 3455 ml Output Total 1370 ml 3950 ml Balance -420 ml -495 ml Intake Oral 2255 ml IV Total 950 ml 1200 ml Output Urine Total 1350 ml 3950 ml Estimated Blood Loss 20 ml Height (Feet): 5 Height (Inches): 7.00 Weight (Pounds): 255 Medications Current Medications Medications (Trade) Dose Ordered Sig/Jordana Route PRN Reason Start Time Stop Time Status Last Admin Dose Admin Acetaminophen/ Hydrocodone Bitart ([place] 5/325) 1 tab Q3H PRN ORAL pain score 1-3 06/14/18 16:06 06/21/18 16:05 Acetaminophen/ Hydrocodone Bitart ([place] 7.5/325) 1 tab Q3H PRN ORAL pain score 4-6 06/14/18 16:06 06/21/18 16:05 Acetaminophen/ Hydrocodone Bitart ([place] 7.5/325) 2 tab Q3H PRN ORAL pain scale 7-10 06/14/18 16:05 06/21/18 16:04 06/15/18 13:16 Dextrose/Sodium Chloride 1,000 ml @ 100 mls/hr Q10H IV 06/14/18 10:58 07/14/18 10:57 06/15/18 03:35 Docusate Sodium (Colace) 100 mg TWICE A DAY ORAL 06/14/18 18:00 07/14/18 17:59 06/15/18 08:21 Morphine Sulfate (Morphine Sulfate) 2 mg Q4H PRN IV Mild Pain (Pain Scale 1-3) 06/14/18 16:07 06/21/18 16:06 Morphine Sulfate (Morphine Sulfate) 4 mg Q3H PRN IV Severe Pain (Pain Scale 7-10) 06/14/18 16:06 06/21/18 16:05 06/15/18 06:18 Morphine Sulfate (Morphine Sulfate) 4 mg Q4H PRN IV Moderate Pain (Pain Scale 4-6) 06/14/18 16:07 06/21/18 16:06 06/14/18 21:29 Naloxone HCl (Narcan) 0.1 mg PRN PRN IVP RR<12/min, pt unarousable 06/14/18 16:07 07/14/18 16:06 Assessment/Plan Problem List: (1) acdf c56 (2) Back pain ICD Codes: M54.9 - Dorsalgia, unspecified SNOMED: [id number] (3) Cervical radiculopathy ICD Codes: M54.12 - Radiculopathy, cervical region SNOMED: 63298779 Assessment/Plan postop care pain management symptomatic treatment pt/ot dvt prophylaxis Julio Cesar Adan MD Jun 15, 2018 15:47
[2018-06-15 16:00] VITALS: BP 130/82
[2018-06-15 20:06] VITALS: BP 118/66
[2018-06-16 00:20] VITALS: BP 113/67
[2018-06-16] MEDS: Morphine Sulfate 4mg/ml Inj (IV USE ONLY) IV PRN (04:07)
[2018-06-16 04:16] VITALS: BP 125/70
[2018-06-16] MEDS: Docusate 100mg cap ORAL SCH (07:46)
[2018-06-16] MEDS: HYDROcodone/Acetamin 7.5/325 tab ORAL PRN ×2 (07:46→11:01)
[2018-06-16 08:00] VITALS: BP 154/99
[2018-06-16] MEDS ORDERED: Tubing IV Secondary IV ONE (11:24)
[2018-06-16] MEDS ORDERED: D5 1/2NS 1000ml IV ONE (11:24)
[2018-06-16 11:30] VITALS: BP 130/78
--- NOTE | 2018-06-17 11:43 | Discharge Summary ---
Discharge Summary Discharge Summary _ DATE OF ADMISSION: 06/14/2018 DATE OF DISCHARGE: 06/16/2018 CONSULTANTS: Dr. Julio Cesar Adan BRIEF HOSPITAL COURSE: Patient is a 33-year-old female, who was diagnosed with C5-C6 disc bulge with stenosis and upper extremity radiculopathy, she failed nonoperative treatment, and surgical intervention was elected. She was admitted and underwent ACDF on C5-C6 with BMAC from right iliac crest. She tolerated procedure well and postoperatively was admitted for postop care. She was given pain management. She was placed on SCDs for DVT prophylaxis. She was encouraged use of incentive spirometry. Diet was advanced. She underwent physical and occupational therapy. She was ambulating well and tolerating diet well. She had good pain control. She was eventually discharged home. FINAL DIAGNOSES: C5-C6 disc herniation with stenosis and upper extremity radiculopathy Status post ACDF on C5-C6 (refer to operative report) DISPOSITION: Patient was discharged home. DISCHARGE MEDICATIONS: Refer to Discharge Medication List. DISCHARGE INSTRUCTIONS: Follow up within a week. I have been assigned to dictate discharge summary on this account, and I was not involved in the patient's management. Violeta Sherman NP Jun 17, 2018 11:43
== END 2018-06-16 11:25 | disposition home or self-care (01) | DRG 473 ==
LOC: SDSOVERFLO 09:26 → 3E 16:00
PROC: 07DR3ZZ Extraction of Iliac Bone Marrow, Percutaneous Approach (ICD-10-PCS; principal; 2018-06-14 11:00)
PROC: 0RG10A0 Fusion of Cervical Vertebral Joint with Interbody Fusion Device, Anterior Approach, Anterior Column, Open Approach (ICD-10-PCS; principal; 2018-06-14 11:00)
PROC: 4A11X4G Monitoring of Peripheral Nervous Electrical Activity, Intraoperative, External Approach (ICD-10-PCS; principal; 2018-06-14 11:00)
PROC: 0RB30ZZ Excision of Cervical Vertebral Disc, Open Approach (ICD-10-PCS; principal; 2018-06-14 11:00)
DX: M50.122 Cervical disc disorder at C5-C6 level with radiculopathy (principal); M48.02 Spinal stenosis, cervical region
CPT/HCPCS: 36415; 72040; 76001; 81025; 86850; 86900; 86901; 87081; 94003; 94150; J2405